=== PATIENT | male | born 1945 | race Caucasian/White ===

== ENCOUNTER → 2019-01-22 | Outpatient (REF) | payer OTHER, MEDICARE, BC ==
[~2019-01-22] MED LIST: /LOR25TA OR; ADVA1AER2 INH; AMIT50TA2 OR; ATROVENT0.02% INH; CARD8TAB2 OR; COLA100C2 OR; DELTASONE PO; DOXY100T OR; GAS EX PO; MIRAPEX PO; NASONEX; NEUR100C OR; PERC5TAB8 PO; PERC7.5T8 OR; PREG50CA PO; PREV15CA OR; PROBENECID PO; VENTAER INH; XOPE0.632 INH; [UNRECOGNIZED DRUG - CODE] OR; bystolic PO
== END ==
LOC: M LAB REF 13:25
PROVIDERS: ATTEND Internal Medicine Pulmonary Disease
DX: J68.4 Chronic respiratory conditions due to chemicals, gases, fumes and vapors (principal)

== ENCOUNTER → 2020-11-17 | Outpatient (REF) | payer OTHER, MEDICARE, BC | LOC: M LAB REF 17:35 | PROVIDERS: ATTEND Internal Medicine Pulmonary Disease | DX: J45.50 Severe persistent asthma, uncomplicated (principal) ==

== ENCOUNTER → 2021-03-16 | Outpatient (CLI) | payer OTHER ==
[~2021-03-16] MED LIST changes: +ISOVUE-370 76% 100ML VIAL As Ordered ONE
== END ==
LOC: M RAD 09:11
PROVIDERS: ATTEND Internal Medicine Pulmonary Disease
DX: Z57.39 Occupational exposure to other air contaminants (principal); I25.10 Atherosclerotic heart disease of native coronary artery without angina pectoris; I70.0 Atherosclerosis of aorta; J84.9 Interstitial pulmonary disease, unspecified
CPT/HCPCS: 71260; Q9967